=== PATIENT | male | born 1945 | race Caucasian/White ===

== ENCOUNTER 2016-10-29 13:14 | Emergency (ER) | payer OTHER ==
[2016-10-29] MEDS ORDERED: LIDOCAINE JELLY 2% 5 ML TUBE TOP STA (13:35)
[2016-10-29] MEDS ORDERED: LIDOCAINE JELLY 2% 5 ML TUBE TOP ONE (13:36)
--- NOTE | 2016-10-29 13:39 | ED Physician Documentation ---
PD HPI HEAD INJURY - Stated complaint Stated Complaint: FACIAL INJURY/2ND TO FALL - Chief complaint Chief Complaint: Trauma Hd/Nk - History obtained from History obtained from: Patient, Family - History of Present Illness Mechanism of head injury: Other (This is a 71-year-old gentleman with recurrent albeit occasional syncope when he turns his head. He's had a complete workup in the past he says without relevant findings. Today he was walking a dog, the dog jerked away from him and he looked rapidly to the left and had a brief syncopal episode, awakening he for he hit the ground. He hit his face on the pavement. He complains only of nasal and facial pain. Tetanus is up-to-date. He does have mild headache.) Review of Systems Ten Systems: 10 systems reviewed and negative Constitutional: denies: Fever, Chills Eyes: denies: Loss of vision, Decreased vision Nose: reports: Epistaxis. denies: Rhinorrhea / runny nose, Congestion Throat: denies: Dental pain / toothache Cardiac: denies: Chest pain / pressure, Palpitations Respiratory: denies: Dyspnea, Cough PD PAST MEDICAL HISTORY - Past Medical History Past Medical History: Yes Endocrine/Autoimmune: Type 2 diabetes - Present Medications Home Medications: Ambulatory Orders Medication Instructions Recorded Confirmed Cephalexin [Keflex] 500 mg PO QID #20 capsule 10/29/16 - Allergies Allergies/Adverse Reactions: Allergies Allergy/AdvReac Type Severity Reaction Status Date / Time No Known Drug Allergies Allergy Verified 10/29/16 13:25 - Living Situation Living Situation: reports: With spouse/s.o. - Social History Does the pt smoke?: No Does the pt drink ETOH?: No Does the pt have substance abuse?: No - Family History Family history: reports: Non contributory PD ED PE NORMAL - Vitals Vital signs reviewed: Yes - General General: Alert and oriented X 3, No acute distress - HEENT HEENT: PERRL, EOMI, Other (There is a deeper abrasion over the bridge of the nose and just to the left of the upper lip filtrum. There is no facial bony tenderness. There is an abrasion versus laceration over the medial part of the left supraorbital ridge. No dental injury.) - Neck Neck: Supple, no meningeal sign, No bony TTP - Cardiac Cardiac: RRR, No murmur - Respiratory Respiratory: No respiratory distress, Clear bilaterally - Abdomen Abdomen: Soft, Non tender - Extremities Extremities: No deformity, No tenderness to palpate, Normal ROM s pain, No edema , No calf tenderness / cord - Neuro Neuro: Alert and oriented X 3, internist 2-12 intact, No motor deficit, No sensory deficit, Normal speech - Psych Psych: Normal mood, Normal affect Results - Vitals Vitals: Vital Signs - 24 hr 10/29/16 13:17 Temperature 36.4 C L Heart Rate 53 L Respiratory 20 Rate Blood Pressure 133/70 H O2 Saturation 98 Oxygen O2 Source Room air - EKG (time done) 1456 Rate: Rate (enter#) (49) Rhythm: Sinus bradycardia [place]: LAD QRS: Low voltage Ischemia: Normal ST segments Computer interpretation: Agree with computer - Labs Labs: Laboratory Tests 10/29/16 13:35 POC Whole Bld Glucose 122 H - Rads (name of study) CT Head and C C spine Radiology: EMP read contemporaneously (Head normal, degenerative chgs in the c spine without frx.) CT Facial bones Radiology: EMP read contemporaneously (Left nasal frx) Procedures - Laceration (location) Left eyebrow and nasal bridge Length in cm: 3 Wound type: Other (Two quite dirty lacerations, one over the left medial eyebrow and one over the nasal bridge. With the aid of lidocaine jelly and then later local infiltration with buffered lidocaine I was able to debride them and get much of the road grit out of the wounds.) Wound Preparation: Irrigated copiously NS Skin layer closure: Nylon, Interrupted, Size #-0 - enter number (5-0), Sutures - enter # (6) Other: Patient tolerated well, Tetanus UTD Complexity: Simple PD MEDICAL DECISION MAKING - ED course ED course: The patient and family were counseled as to the diagnosis and need for followup. I counseled the patient with regard to signs and symptoms that would necessitate an urgent reevaluation in the emergency department. They understand they are welcome to return at any time if worse or if not improving as expected. This document was made in part using voice recognition software. While efforts are made to proofread this document, sound alike and grammatical errors may occur. Departure - Departure Disposition: 01 Home, Self Care Clinical Impression: Fall from ground level Syncope Qualifiers: Syncope type: unspecified Qualified Code(s): R55 - Syncope and collapse Diabetes Qualifiers: Diabetes mellitus type: type 2 Diabetes mellitus complication status: with hyperglycemia Diabetes mellitus custodial insulin use: without custodial use Qualified Code(s): E11.65 - Type 2 diabetes mellitus with hyperglycemia Nasal fracture Qualifiers: Encounter type: initial encounter Fracture type: closed Qualified Code(s): S02.2XXA - Fracture of nasal bones, initial encounter for closed fracture Facial laceration Qualifiers: Encounter type: initial encounter Qualified Code(s): S01.81XA - Laceration without foreign body of other part of head, initial encounter Condition: Good Instructions: ED Fx Nasal Conf W X Ray, ED Head Injury Closed, ED Laceration Facial Sutr Tape Prescriptions: Cephalexin [Keflex] 500 mg PO QID #20 capsule Comments: Wash the wound briefly but in general keep it dry and covered. Come back for any signs of infection which would include: Redness, swelling, drainage, increased pain, or fevers. Followup with your doctor in 6-7 days for suture removal. Your blood pressure was elevated today on check in to the emergency department. This does not mean that you have hypertension, it is a common phenomenon to check into the emergency department and have elevated blood pressure. I recommend that you see your primary care physician within the week to have it rechecked when you're feeling better.
[2016-10-29] MEDS ORDERED: BUFFERED LIDOCAINE 10 ML SYRINGE ONE (14:35)
--- NOTE | 2016-10-29 14:52 | CT Preliminary Report ---
Exam: CT Head W/O IMPRESSION: Unremarkable noncontrast head CT. [facility] SITE ID: [id number]
--- NOTE | 2016-10-29 14:54 | CT Report ---
EXAM: CT HEAD EXAM DATE: 10/29/2016 02:15 PM. CLINICAL HISTORY: Fall, head and face injury. Loss of consciousness. COMPARISON: None. TECHNIQUE: Multiaxial CT images were obtained from the foramen magnum to the vertex. IV contrast: Non e. Reformats: Coronal. In accordance with CT protocol optimization, one or more of the following dose reduction techniques w ere utilized for this exam: automated exposure control, adjustment of mA and/or KV based on patient s ize, or use of iterative reconstructive technique. FINDINGS: Parenchyma: No intraparenchymal hemorrhage. No evidence of mass, midline shift, or CT findings of inf arction. Larios-white differentiation is distinct. Extraaxial Spaces: Normal for age. No subdural or epidural collections identified. Ventricles: Normal in size and position. Sinuses: Imaged paranasal sinuses, orbits, and mastoids show no significant abnormality. Bones: No evidence of fracture or calvarial defect. Other: None. IMPRESSION: Unremarkable noncontrast head CT. [facility] Referring Provider Line: [phone] SITE ID: [id number]
[2016-10-29] MEDS ORDERED: CEPHALEXIN 250 MG CAPSULE PO STA (14:57)
--- NOTE | 2016-10-29 14:59 | CT Preliminary Report ---
Exam: CT Cervical Spine W/O IMPRESSION: Mild to moderate degenerative disk disease cervical spine without evidence of fracture. [facility] SITE ID: [id number]
[2016-10-29] MEDS ORDERED: CEPHALEXIN 250 MG CAPSULE PO ONE (15:00)
--- NOTE | 2016-10-29 15:00 | CT Report ---
EXAM: CT CERVICAL SPINE WITHOUT CONTRAST DATE: 10/29/2016 02:15 PM HISTORY: Head injury, fall and loss of consciousness. COMPARISONS: None. TECHNIQUE: Thin-section axial images were acquired of the cervical spine without contrast. Post-proce ssing: Coronal and sagittal reformats. Other: None. In accordance with CT protocol optimization, one or more of the following dose reduction techniques w ere utilized for this exam: automated exposure control, adjustment of mA and/or KV based on patient s ize, or use of iterative reconstructive technique. FINDINGS: Alignment: Normal. No scoliosis or spondylolisthesis. Bones: No fracture or bone lesion. Interspace Levels/Facets: C1-C2: Unremarkable. C2-C3: Unremarkable. C3-C4: Unremarkable. C4-C5: Facet hypertrophy without significant stenosis. C5-C6: Disk space narrowing with posterior osteophytes causing moderate bilateral foraminal stenosis. C6-C7: Facet hypertrophy with disk space narrowing and anterior and posterior osteophytes with mild l eft foraminal stenosis. C7-T1: Facet hypertrophy without significant stenosis. Other: Trace left mastoid fluid. Atherosclerosis. IMPRESSION: Mild to moderate degenerative disk disease cervical spine without evidence of fracture. [facility] Referring Provider Line: [phone] SITE ID: [id number]
--- NOTE | 2016-10-29 15:10 | CT Preliminary Report ---
Exam: CT Facial Bones W/O IMPRESSION: Minimally displaced left nasal bone fracture. [facility] SITE ID: [id number]
--- NOTE | 2016-10-29 15:12 | CT Report ---
EXAM: CT MAXILLOFACIAL WITHOUT CONTRAST EXAM DATE: 10/29/2016 02:15 PM. CLINICAL HISTORY: Fall, head and face injury. Loss of consciousness. COMPARISONS: None. TECHNIQUE: Thin-section axial images were acquired of the face without contrast. Post-processing: Cor onal and sagittal reformats. Other: None. In accordance with CT protocol optimization, one or more of the following dose reduction techniques w ere utilized for this exam: automated exposure control, adjustment of mA and/or KV based on patient s ize, or use of iterative reconstructive technique. FINDINGS: Bones: There is a left nasal bone fracture with 2 mm medial displacement of the nasal bone. Temporomandibular Joints: The temporomandibular joints are symmetric and normally located. Sinuses: Minimal mucosal thickening maxillary sinuses. Other: Prominent dental disease with a likely odontogenic cyst along a right maxillary molar. Soft ti ssue swelling with minimal debris along the skin surface at the level of the nose. IMPRESSION: Minimally displaced left nasal bone fracture. [facility] Referring Provider Line: [phone] SITE ID: [id number]
[2016-10-29 15:27] VITALS: BP 134/78
== END 2016-10-29 15:25 | disposition home or self-care (01) ==
LOC: ED 13:14
DX: S01.21XA Laceration without foreign body of nose, initial encounter (principal); S01.112A Laceration without foreign body of left eyelid and periocular area, initial encounter; S02.2XXA Fracture of nasal bones, initial encounter for closed fracture; W19.XXXA Unspecified fall, initial encounter; R55 Syncope and collapse; E11.65 Type 2 diabetes mellitus with hyperglycemia; R03.0 Elevated blood-pressure reading, without diagnosis of hypertension
CPT/HCPCS: 12052; 70450; 70486; 72125; 93005; 93010; 99283; 99284; A9270; J3490